=== PATIENT | male | born 1940 | race Two or more races ===

== ENCOUNTER 2020-12-27 02:09 | Emergency (ER) | payer OTHER ==
[~2020-12-27] VITALS: Ht 172.7 cm; Wt 81.6 kg
[2020-12-27] MEDS ORDERED: SYNTHROID137 MCG (02:16)
[2020-12-27] MEDS ORDERED: ATORVASTATIN CA10 MG (02:17)
[2020-12-27] MEDS ORDERED: AVAPRO75 MG (02:17)
[2020-12-27] MEDS ORDERED: HYDROCORTISONE10 MG (02:17)
== END 2020-12-27 12:09 | disposition home or self-care (01) ==
LOC: ER 02:09
DX: R42 Dizziness and giddiness (principal); R00.1 Bradycardia, unspecified; Z20.822 Contact with and (suspected) exposure to COVID-19